=== PATIENT | male | born 2000 ===

== ENCOUNTER 2021-06-06 22:00 | Emergency (ER) | payer OTHER | END 2021-06-06 22:45 | disposition home or self-care (01) | LOC: ERS 22:00 | DX: R59.1 Generalized enlarged lymph nodes (principal) | CPT/HCPCS: 99283 ==

== ENCOUNTER 2022-06-13 21:37 | Emergency (ER) | payer SELFPAY | END 2022-06-13 23:43 | disposition home or self-care (01) | LOC: ERS 21:37 | DX: Z77.21 Contact with and (suspected) exposure to potentially hazardous body fluids (principal); F17.290 Nicotine dependence, other tobacco product, uncomplicated | CPT/HCPCS: 99282 ==

== ENCOUNTER 2022-10-03 19:12 | Emergency (ER) | payer SELFPAY | END 2022-10-03 21:44 | disposition left against medical advice (07) | LOC: ERS 19:12 | DX: Z53.29 Procedure and treatment not carried out because of patient's decision for other reasons (principal); Z20.822 Contact with and (suspected) exposure to COVID-19 | CPT/HCPCS: 71045; 87635 ==

== ENCOUNTER 2023-05-08 17:36 | Emergency (ER) | payer SELFPAY ==
[2023-05-08] MEDS ORDERED: Ketorolac Tromethamine 30 MG (1 mL) VIAL ONE (18:58)
[2023-05-08 20:12] LABS: SARS-CoV-2 NAA Rapid Test Not Detected (NotDetected)
== END 2023-05-08 20:20 | disposition home or self-care (01) ==
LOC: ERS 17:36
DX: J11.1 Influenza due to unidentified influenza virus with other respiratory manifestations (principal); F17.290 Nicotine dependence, other tobacco product, uncomplicated
CPT/HCPCS: 93005; 96374; J1885